=== PATIENT | female | born 1945 | race Caucasian/White ===

== ENCOUNTER 2022-06-25 08:02 | Day surgery (SDC) | payer OTHER, BC ==
[2022-06-20 15:17] VITALS: BMI 22.0
[2022-06-25] MEDS: PHENYLEPHRINE 2.5% OPHTH SOLN 15 ML BOTTLE ONE ×3 (08:40→08:50)
[2022-06-25] MEDS: CIPROFLOXACIN 0.3% EYE DROPS 5 ML BOTTLE ONE ×3 (08:40→08:50)
[2022-06-25] MEDS: CYCLOPENTOLATE 2% OPHTH SOLN 2 ML BOTTLE ONE ×3 (08:40→08:50)
[2022-06-25] MEDS: TROPICAMIDE 1% OPHTH SOLN 15 ML BOTTLE ONE ×3 (08:45→08:55)
[2022-06-25] MEDS ORDERED: EPINEPHrine/PF 1 MG/1 ML (1:1,000) AMPULE ONE (09:41)
[2022-06-25] MEDS ORDERED: CARBACHOL 0.01% INTRA-OCULAR 1.5 ML VIAL ONE (09:41)
[2022-06-25] MEDS ORDERED: LIDOCAINE 1% P/F 10 MG/ML VIAL ONE (09:41)
[2022-06-25] MEDS ORDERED: NEO/POLYMYX B SULF/DEXAMETH OPHTHALMIC 5ML BOTTLE ONE (09:41)
[2022-06-25] MEDS ORDERED: BSS (NA/CA/MG/K) BALANCED SALT SOLUTION OPHTH SOLN 15 ML BOTTLE ONE (09:41)
[2022-06-25] MEDS ORDERED: TETRACAINE 0.5% OPHTH SOLN 2 ML BOTTLE ONE (09:41)
[2022-06-25] MEDS ORDERED: MIDAZOLAM HCL 2 MG/2 ML SINGLE DOSE VIAL ONE (10:16)
[2022-06-25 11:00] VITALS: TEMP 97.9
[2022-06-25 11:16] VITALS: BP 136/71; PULSE 81; RESP 16
== END 2022-06-25 11:40 | disposition home or self-care (01) ==
LOC: FASU 08:02
PROVIDERS: ATTEND Ophthalmology
PROC: 08RK3JZ Replacement of Left Lens with Synthetic Substitute, Percutaneous Approach (ICD-10-PCS; principal; 2022-06-25 10:20)
DX: H26.8 Other specified cataract (principal)
CPT/HCPCS: 66984; V2632

== ENCOUNTER 2022-08-06 07:11 | Day surgery (SDC) | payer OTHER, BC ==
[2022-08-05 11:19] VITALS: BMI 22.0
[2022-08-06] MEDS ORDERED: CIPROFLOXACIN 0.3% EYE DROPS 5 ML BOTTLE ONE (07:15)
[2022-08-06] MEDS ORDERED: PHENYLEPHRINE 2.5% OPHTH SOLN 15 ML BOTTLE ONE (07:15)
[2022-08-06] MEDS ORDERED: CYCLOPENTOLATE 2% OPHTH SOLN 2 ML BOTTLE ONE (07:15)
[2022-08-06] MEDS ORDERED: TROPICAMIDE 1% OPHTH SOLN 15 ML BOTTLE ONE (07:15)
[2022-08-06] MEDS ORDERED: EPINEPHrine/PF 1 MG/1 ML (1:1,000) AMPULE ONE (07:17)
[2022-08-06] MEDS ORDERED: BSS (NA/CA/MG/K) BALANCED SALT SOLUTION OPHTH SOLN 15 ML BOTTLE ONE (07:17)
[2022-08-06] MEDS ORDERED: TETRACAINE 0.5% OPHTH SOLN 2 ML BOTTLE ONE (07:17)
[2022-08-06] MEDS ORDERED: NEO/POLYMYX B SULF/DEXAMETH OPHTHALMIC 5ML BOTTLE ONE (07:18)
[2022-08-06] MEDS ORDERED: CARBACHOL 0.01% INTRA-OCULAR 1.5 ML VIAL ONE (07:18)
[2022-08-06] MEDS ORDERED: PHENYLEPHRINE 2.5% OPHTH SOLN 15 ML BOTTLE OD ONE ×3 (07:45→07:55)
[2022-08-06 07:49] VITALS: RESP 16
[2022-08-06] MEDS ORDERED: TROPICAMIDE 1% OPHTH SOLN 15 ML BOTTLE OD ONE ×2 (07:50→08:00)
[2022-08-06] MEDS ORDERED: CYCLOPENTOLATE 2% OPHTH SOLN 2 ML BOTTLE OD ONE ×2 (07:50→07:55)
[2022-08-06] MEDS ORDERED: CIPROFLOXACIN 0.3% EYE DROPS 5 ML BOTTLE OD ONE ×2 (07:50→07:55)
[2022-08-06] MEDS ORDERED: MIDAZOLAM HCL 2 MG/2 ML SINGLE DOSE VIAL ONE ×2 (08:07→08:43)
[2022-08-06 09:39] VITALS: BP 128/70; PULSE 77; TEMP 97.8
== END 2022-08-06 09:50 | disposition home or self-care (01) ==
LOC: FASU 07:11
PROVIDERS: ATTEND Ophthalmology
PROC: 08RJ3JZ Replacement of Right Lens with Synthetic Substitute, Percutaneous Approach (ICD-10-PCS; principal; 2022-08-06 08:43)
DX: H26.8 Other specified cataract (principal)
CPT/HCPCS: 66984; V2632